=== PATIENT | male | born 1965 ===

== ENCOUNTER 2022-09-18 13:59 | Outpatient (REF) | payer BC, SELFPAY | END 2022-09-18 14:00 | disposition home or self-care (01) | LOC: HO.SH 13:59 | PROVIDERS: Visit Provider Physician Assistant | DX: Z01.118 Encounter for examination of ears and hearing with other abnormal findings (principal); H90.3 Sensorineural hearing loss, bilateral | CPT/HCPCS: 92557; 92567 ==

== ENCOUNTER → 2022-10-09 15:14 | Outpatient (BNVA) | payer BC, SELFPAY | PROVIDERS: PCP Internal Medicine; Visit Provider Student in an Organized Health Care Education/Training Program | DX: Z13.89 Encounter for screening for other disorder (principal) ==